=== PATIENT | male | born 1970 ===

== ENCOUNTER 2019-01-13 12:12 | Day surgery (SDC) | payer OTHER ==
[2019-01-13] VITALS (11 sets, daily range): BP systolic 96–117; BP diastolic 63–80
[~2019-01-13] VITALS: Ht 167.6 cm; Wt 61.2 kg
--- NOTE | 2019-01-13 07:48 | Pre-Procedure Note/Attestation ---
Pre-Procedure Note/Attestation Complete Prior to Procedure Planned Procedure: right Procedure Narrative: shoulder arthroscopy, sad Indications for Procedure Pre-Operative Diagnosis: right shoulder impingement Attestation I attest that I discussed the nature of the procedure; its benefits; risks and complications; and alternatives (and the risks and benefits of such alternatives ), prior to the procedure, with the patient (or the patient's legal automobile rental representative). I attest that, if there was a reasonable possibility of needing a blood transfusion, the patient (or the patient's legal automobile rental representative) was given the [facility] standardized written summary, pursuant to the [place] Blood Safety Act ([place] Health and Safety Code # 1645, as amended). I attest that I re-evaluated the patient just prior to the surgery and that there has been no change in the patient's H&P, except as documented below: Sanket Weaver MD Jan 13, 2019 07:48
--- NOTE | 2019-01-13 07:49 | Operative Note - PDOC ---
Operative Note Operative Note Pre-op Diagnosis: right shoulder impingement Procedure: see op report Post-op Diagnosis: same as pre-op plus Anesthesia: regional Specimen: none Complications: none Condition: stable Estimated Blood Loss: none Implant(s) used?: No Sanket Weaver MD Jan 13, 2019 07:49
[~2019-01-13 12:12] MED LIST: D5 1/2NS 1,000 ML IV SCH; HYDROcodone/Acetamin 5/325 tab ORAL PRN; HYDROmorphone 1mg/ml Carpuject SUBQ PRN; INSULIN LI100 UNIT/2 SQ; LANTUS SOL100 UNIT/1 SUBQ; Tylenol #3 tab (300mg/30mg) ORAL PRN; ceFAZolin 1gm IVPB IVPB ONE; celeBREX 200mg Cap **SURGERY PATIENTS ONLY ORAL ONE; oxyCONTIN 20mg tab ORAL ONE
[2019-01-13] MEDS ORDERED: EPINEPHrine 1mg/1ml Amp ONE (12:42)
[2019-01-13] MEDS ORDERED: HUMALOG100 UNIT/4 SUBQ (12:49)
[2019-01-13] MEDS ORDERED: celeBREX 200mg Cap **SURGERY PATIENTS ONLY ORAL ONE (13:03)
[2019-01-13] MEDS ORDERED: oxyCONTIN 20mg tab ORAL ONE (13:03)
[2019-01-13] MEDS ORDERED: LR 1000ml ONE (13:30)
[2019-01-13] MEDS ORDERED: NS Irrig 4000ml IRRIG ONE (13:30)
[2019-01-13] MEDS ORDERED: fentaNYL 100 mcg/2 mL IV ONE ×2 (13:41→13:44)
[2019-01-13] MEDS ORDERED: Propofol 200mg/20ml IV ONE (14:09)
[2019-01-13] MEDS ORDERED: Sodium Chloride 10ml vial INJ ONE (14:09)
[2019-01-13] MEDS ORDERED: ePHEDrine 50mg/ml Inj ONE (14:09)
[2019-01-13] MEDS ORDERED: Lidocaine 1% MPF 10mg/ml 5ml ONE (14:15)
[2019-01-13] MEDS ORDERED: Ropivacaine 5mg/ml Vial 30ml INJ ONE (14:16)
[2019-01-13] MEDS ORDERED: LR 1000ml 1,000 ML IVLG SCH (14:31)
--- NOTE | 2019-01-13 14:31 | Anethesia Preoperative Eval ---
Anesthesia Pre-op PMH/ROS General Date of Evaluation: Jan 13, 2019 Time of Evaluation: 13:10 Anesthesiologist: Chuyita ASA Score: ASA 3 Mallampati Score Class I : Soft palate, uvula, fauces, pillars visible Class II: Soft palate, uvula, fauces visible Class III: Soft palate, base of uvula visible Class IV: Only hard plate visible Mallampati Classification: Class II Surgeon: Owen Diagnosis: R shoulder pain Surgical Procedure: R shoulder scope Anesthesia History: none Family History: no anesthesia problems Allergies: Coded Allergies: No Known Allergies (Unverified , 01/13/19) Medications: see eMAR Patient NPO?: Yes Past Medical History Cardiovascular: Denies: HTN, CAD, [place], valve dz, arrhythmia, other Pulmonary: Denies: asthma, COPD, DUARTE, other Gastrointestinal/Genitourinary: Reports: GERD Neurologic/Psychiatric: Denies: dementia, CVA, depression/anxiety, TIA, other Endocrine: Reports: DM - on insulin, poorly controled; Denies: hypothyroidism, steroids, other HEENT: Denies: cataract (L), cataract (R), glaucoma, YUHAAVIATAM (L), YUHAAVIATAM (R), other Hematology/Immune: Denies: anemia, DVT, bleeding disorder, other Musculoskeletal/Integumentary: Denies: OA, RA, DJD, DDD, edema, other PMH Narrative: as above PSxH Narrative: hand Sx Anesthesia Pre-op Phys. Exam Physician Exam Last Vital Signs Date Time Temp Pulse Resp B/P (MAP) Pulse Ox O2 Delivery O2 Flow Rate FiO2 01/13/19 13:08 Room Air 01/13/19 13:05 97.8 98 18 117/80 95 Constitutional: NAD Neurologic: CN 2-12 intact Cardiovascular: RRR, no M/R/G Respiratory: CTA Airway Exam Mallampati Score: Class II MO: full Neck: flexible ROM: full Teeth: intact Dentures: no upper, no lower Anesthesia Pre-op A/P Labs see chart Accucheck 290 at admission Studies Pre-op Studies: EKG - SR Risk Assessment & Plan Assessment: ASA 2 Plan: GA wit ETT, brachial plexus block for postop pain control Status Change Before Surgery: No Pre-Antibiotics Drug: Ancef 1gr Given Within 1 Hr of Incision: Yes Time Given: 14:02 Micheal Boogie MD Jan 13, 2019 14:31
[2019-01-13] MEDS ORDERED: Meperidine 50mg/ml Inj(FOR RIGORS ONLY) IV PRN (14:45)
[2019-01-13] MEDS ORDERED: Ketorolac 30mg Inj IV PRN (14:45)
[2019-01-13] MEDS ORDERED: Insulin Human Regular 100units/ml 3ml ONE (15:13)
--- NOTE | 2019-01-13 15:17 | Immediate Post-Op Evaluation ---
Immediate Post-Op Evalulation Immediate Post-Op Evalulation Procedure: R shoulder arthroscopy subacromion decompression RC repair Date of Evaluation: Jan 13, 2019 Time of Evaluation: 15:16 IV Fluids: 1200 Blood Products: none Estimated Blood Loss: min Urinary Output: none Blood Pressure Systolic: 101 Blood Pressure Diastolic: 56 Pulse Rate: 86 Respiratory Rate: 16 O2 Sat by Pulse Oximetry: 99 Temperature (Fahrenheit): 97.6 Pain Score (1-10): 1 Nausea: No Vomiting: No Complications none Patient Status: reacts, patent, extubated, none Hydration Status: adequate Micheal Boogie MD Jan 13, 2019 15:17
[2019-01-13] MEDS ORDERED: Insulin Human Regular 100units/ml 3ml SUBQ SCH (15:30)
--- NOTE | 2019-01-13 17:29 | 48 Hour Post Anesthesia Eval ---
Post Anesthesia Evaluation Procedure: R shoulder arthroscopy subacromion decompression RC repair Date of Evaluation: Jan 13, 2019 Time of Evaluation: 17:28 Blood Pressure Systolic: 102 0: 72 Pulse Rate: 68 Respiratory Rate: 20 Temperature (Fahrenheit): 97.6 O2 Sat by Pulse Oximetry: 98 Airway: patent Nausea: No Vomiting: No Pain Intensity: 1 Hydration Status: adequate Cardiopulmonary Status: stable Mental Status/LOC: patient returned to baseline Follow-up Care/Observations: n/a Post-Anesthesia Complications: none Follow-up care needed: ready to discharge Micheal Boogie MD Jan 13, 2019 17:29
--- NOTE | 2019-01-13 18:15 | Operative Note - Dictated ---
DATE OF OPERATION: 01/13/2019 PREOPERATIVE DIAGNOSES: 1. Right shoulder partial rotator cuff tear. 2. Right shoulder impingement syndrome. POSTOPERATIVE DIAGNOSES: 1. Right shoulder high-grade partial rotator cuff tear. 2. Right shoulder impingement syndrome. PROCEDURES: 1. Right shoulder arthroscopy, extensive debridement. 2. Right shoulder subacromial decompression. 3. Right shoulder rotator cuff repair. SURGEON: Sanket Weaver M.D. ANESTHESIA: General. INDICATION FOR PROCEDURE: The patient is a pleasant gentleman who has had right shoulder pain. He had an MRI, which showed a partial high-grade rotator cuff tear. He failed conservative treatment and elected to undergo right shoulder arthroscopy, possible debridement, repair of the rotator cuff. Risks, limitations, expectations, complications of the procedure were discussed in detail in light of his diabetes. All questions were addressed. DESCRIPTION OF PROCEDURE: After informed consent was obtained, the patient was brought to the operating room. The patient was placed under interscalene general anesthesia. Right shoulder was prepped and draped in a sterile manner. Time-out was performed. Left shoulder was prepped and draped in a sterile manner. Ancef was administered. Posterolateral skin incision was then made. Trocar was introduced into the glenohumeral joint. There was no chondral damage. The anterior labrum was intact along with the subscap. The biceps tendon along the superior labrum was intact. rotator cuff has significant tear. Lateral working portal was established. This area of the tear was debrided down to healthy tissue. The camera was then repositioned into the subacromial space. Complete bursectomy was performed. Acromioplasty was started from lateral to medial and completed from posterior to anterior. Once that was done, two arthroscopic anchors then placed. We created the footprint. Instruments removed. Portal sites were closed using 3-0 Monocryl sutures. Steri-Strips and a sterile dressing were applied. The patient awoken and taken to recovery room with stable vital signs. ESTIMATED BLOOD LOSS: None. COMPLICATIONS: None. SPECIMENS: None. IMPLANTS: Two JuggerKnot anchors. Sanket Weaver M.D. DR: TEODORA JOB#: [id number] CC:
== END 2019-01-13 16:50 | disposition home or self-care (01) ==
LOC: SUR 12:12
DX: M75.111 Incomplete rotator cuff tear or rupture of right shoulder, not specified as traumatic (principal); M75.41 Impingement syndrome of right shoulder; K21.9 Gastro-esophageal reflux disease without esophagitis; E11.9 Type 2 diabetes mellitus without complications
CPT/HCPCS: 29826; 29827; 82962; C1713; J0171; J1815; J1885; J2704; J2795; J3010; 94003; 94150